=== PATIENT | female | born 1975 | race Caucasian/White ===

== ENCOUNTER 2018-08-20 06:33 | Day surgery (SDC) | payer OTHER ==
[2018-08-20] MEDS ORDERED: FENTAnyl 50 MCG/ML VIAL (09:01)
[2018-08-20] MEDS ORDERED: MIDAZOLAM 1 MG/ML 2 ML INJ ×2 (09:02)
== END 2018-08-20 11:09 | disposition home or self-care (01) ==
LOC: GIL 06:33
DX: K44.9 Diaphragmatic hernia without obstruction or gangrene (principal); K29.50 Unspecified chronic gastritis without bleeding; K21.0 Gastro-esophageal reflux disease with esophagitis
CPT/HCPCS: 43239; 88305; 88312